=== PATIENT | female | born 2005 | race Two or more races ===

== ENCOUNTER 2025-03-02 11:07 | Emergency (ER) | payer SELFPAY ==
[2025-03-02 11:14] VITALS: BP 134/84
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
[2025-03-02 12:00] VITALS: BP 125/80
[2025-03-02 12:03] LABS: Hematocrit 33.8 % (37.0-47.0); Hemoglobin 10.8 g/dL (12.0-16.0); Mean Corp Hgb Conc. 32.0 g/dL (33.0-37.0); Mean Corpuscular Volume 73.3 fL (81.0-99.0); Nucleated Red Blood Cells % 0 %; Platelet Count 210 10^3/uL (130-400); Red Cell Dist. Width 16.9 % (11.5-14.5)
[2025-03-02 12:15] LABS: HCG, Serum Qualitative Screen Negative
[2025-03-02 12:21] LABS: ALT (SGPT) 91 U/L (0-35); AST (SGOT) 35 U/L (14-36); Albumin 4.2 g/dl (3.5-5.0); Alkaline Phosphatase 93 U/L (38-126); Blood Urea Nitrogen 11 mg/dl (7-17); Calcium 9.4 mg/dl (8.4-10.2); Carbon Dioxide 25 mmol/L (22-30); Chloride 105 mmol/L (98-107); Glucose 134 mg/dl (70-99); Potassium 4.2 mmol/L (3.5-5.1); Sodium 137 mmol/L (135-145); Total Protein 7.1 g/dl (6.3-8.2); eGFR > 60.00
[2025-03-02 13:00] VITALS: BP 116/87
== END 2025-03-02 13:24 | disposition home or self-care (01) ==
LOC: EMR 11:07
PROVIDERS: Physician Assistant; EMERGENCY PHYSICIAN Emergency Medicine
DX: S20.219A Contusion of unspecified front wall of thorax, initial encounter (principal); M54.2 Cervicalgia; V43.52XA Car driver injured in collision with other type car in traffic accident, initial encounter
CPT/HCPCS: 99284; 71260; 80053; 84703; 85025; Q9967